=== PATIENT | male | born 1965 | race Caucasian/White ===

== ENCOUNTER 2019-11-14 18:26 | Emergency (ER) | payer OTHER ==
--- NOTE | 2019-11-14 19:58 | EDM.PDOC ---
ED HPI GENERAL MEDICAL PROBLEM - General Chief Complaint: Laceration Stated Complaint: FISHING HOOK IN LEG Time Seen by Provider: 11/14/19 19:48 Source of Information: Reports: Patient - History of Present Illness INITIAL COMMENTS - FREE TEXT/NARRATIVE: Patient goes on a yearly [place] fishing trip with friends every year about 20 years. Patient got the fish hook into his left lateral leg at level of knee. Patient had a tool to cut the hook but the ana lilia remains imbedded in his skin. Patient believes he is due for his next tetanus shot at this time. - Related Data Allergies Allergy/AdvReac Type Severity Reaction Status Date / Time No Known Allergies Allergy Verified 11/14/19 19:43 Home Meds: Home Meds atorvaSTATin [Lipitor] 10 mg PO DAILY 11/14/19 [History] Past Medical History Cardiovascular History: Reports: High Cholesterol Musculoskeletal History: Reports: Fracture Endocrine/Metabolic History: Reports: Other (See Below) Other Endocrine/Metabolic History: donated a kidney - Past Surgical History HEENT Surgical History: Reports: Tonsillectomy GI Surgical History: Reports: Hernia Repair/Other Musculoskeletal Surgical History: Reports: Arthroscopic Knee Social & Family History - Tobacco Use Smoking Status *Q: Never Smoker ED ROS GENERAL - Review of Systems Review Of Systems: Comprehensive ROS is negative, except as noted in HPI. ED EXAM, SKIN/RASH Exam: See Below Exam Limited By: No Limitations General Appearance: Alert, WD/WN, No Apparent Distress Eye Exam: Bilateral Eye: EOMI, Normal Inspection Ears: Normal External Exam, Hearing Grossly Normal Nose: Normal Inspection Throat/Mouth: Normal Inspection, Normal Voice, No Airway Compromise Head: Atraumatic, Normocephalic Neck: Normal Inspection, Full Range of Motion Respiratory/Chest: No Respiratory Distress Cardiovascular: Normal Peripheral Pulses (Male) Exam: Deferred Rectal (Males) Exam: Deferred Extremities: Normal Inspection, Normal Range of Motion, Other (Fish hook ([place]) left lateral lower leg at level of knee) Neurological: Alert, Oriented Psychiatric: Normal Affect Location, Skin: Other (Fish hook Left lateral knee ) ED SKIN PROCEDURES - Foreign Body Removal Indication:: Fish hook left lateral knee Consent Obtained:: Patient Performing Doctor:: Marcia Perez Foreign Body Other Location Comment:: Fish hook with ana lilia lateral left knee Anesthesia Type: Local Anesthesia Other:: Lidocaine 1%: 3-5 cc after area with prepped with betadine. Complications:: No (irrigation with sterile saline completed. Nonahderent dressing and kwame wrap) Comments:: Puncture wound was irrigation with 250 cc sterile saline. Nonadherent dressing and kwame wrap applied. Course - Vital Signs Last Recorded V/S: Last Vital Signs Temp 36.6 C 11/14/19 19:44 Pulse 78 11/14/19 19:44 Resp 20 11/14/19 19:44 BP 159/96 H 11/14/19 19:44 Pulse Ox 97 11/14/19 19:44 - Orders/Labs/Meds Orders: Active Orders 24 hr Category Date Time Status Vaccines to be Administered [RC] PER UNIT ROUTINE Care 11/14/19 20:07 Active Meds: Medications Discontinued Medications Generic Name Dose Route Start Last Admin Trade Name Char PRN Reason Stop Dose Admin Bacitracin 1 dose 11/14/19 20:07 11/14/19 20:24 Bacitracin Oint 1 Gm TOP 11/14/19 20:08 1 dose ONETIME ONE Administration Diphtheria/Tetanus/Acell Pertussis 0.5 ml 11/14/19 20:07 11/14/19 20:23 Adacel IM 11/14/19 20:08 0.5 ml .ONCE ONE Administration Lidocaine HCl 5 ml 11/14/19 20:07 11/14/19 20:24 Xylocaine-Mpf 1% INJECT 11/14/19 20:08 5 ml ONETIME ONE Administration Departure - Departure Time of Disposition: 20:55 Disposition: Home, Self-Care 01 Clinical Impression: Puncture wound, Tetanus toxoid vaccination administered at current visit, Fish hook injury of left lower leg - Discharge Information Instructions: Puncture Wound Referrals: PCP,None [Primary Care Provider] - Forms: ED Department Discharge Additional Instructions: 1. Soap and water wash the area every am and pm. Topical antibiotic ointment and bandage after cleansing. 2. Monitor closely for infection: red, warmth, swelling, increased pain and drainage. 3. Tetanus updated during visit today. 4. Tylenol for pain or Ibuprofen with food for pain, swelling and inflammation. Sepsis Event Note (ED) - Evaluation Sepsis Screening Result: No Definite Risk - Focused Exam Vital Signs: Vital Signs Temp Pulse Resp BP Pulse Ox 11/14/19 19:44 36.6 C 78 20 159/96 H 97 - My Orders Last 24 Hours: My Active Orders 11/14/19 20:07 Vaccines to be Administered [RC] PER UNIT ROUTINE - Assessment/Plan Last 24 Hours: My Active Orders 11/14/19 20:07 Vaccines to be Administered [RC] PER UNIT ROUTINE
[2019-11-14] MEDS ORDERED: Bacitracin Oint 1 GM U/D Packet TOP ONE (20:07)
[2019-11-14] MEDS ORDERED: Diphtheria,Pertussis(Acell),Tetanus Vaccine 0.5 ML SDV IM ONE (20:07)
== END 2019-11-14 21:03 | disposition home or self-care (01) ==
LOC: JP.ED 18:26
DX: S81.832A Puncture wound without foreign body, left lower leg, initial encounter (principal); Z23 Encounter for immunization; E78.00 Pure hypercholesterolemia, unspecified; Z79.899 Other long term (current) drug therapy; W45.8XXA Other foreign body or object entering through skin, initial encounter
CPT/HCPCS: 90471; 90715; 99283; J2001; 99282